=== PATIENT | female | born 2005 | race Caucasian/White ===

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

== ENCOUNTER 2025-04-15 09:49 | Outpatient (CLI) | payer OTHER, SELFPAY ==
--- NOTE | ~2025-04-15 | XR_ITS ---
XR cervical spine 4-5V Ordering provider: Verónica Arrieta MD History: . HUMP IN THORACIC AREA . Comparison: None. FINDINGS: VERTEBRAL BODIES: Normal height and alignment. No visible fracture or subluxation. The dens is intact . DISK SPACES: Well maintained. Normal intervertebral foramina. PARASPINOUS SOFT TISSUES: No prevertebral soft tissue swelling. IMPRESSION: No acute osseous abnormality cervical spine. Reviewed, dictated and finalized at location A.
--- NOTE | ~2025-04-15 | XR_ITS ---
3 VIEWS THORACIC SPINE Ordering provider: Verónica Arrieta MD History: . HUMP IN THORACIC AREA . Comparison: None. FINDINGS: VERTEBRAL BODIES: Normal height and alignment. No visible fracture or subluxation. DISK SPACES: Normal. SOFT TISSUES: Normal. IMPRESSION: No acute osseous abnormality of the thoracic spine. Reviewed, dictated and finalized at location A.
--- OUTSIDE RECORDS SUMMARY | 2025-04-15 10:03 | XMS_ITS | Clinical Summary ---
Author Organization [facility] Address [address] [place] [address] Care Team Providers Care Landcare Officer Name Role Phone Verónica Arrieta MD Primary Care Provider [phone] Source Comments [facility],non-owned Affiliates and Associated Physician Practices is amultiple site organization consisting of ambulatory clinics and hospital sitesin [place], [place], [place] and [place]. This disclosure is being madepursuant to the Care Everywhere program and may not contain all information available regarding this patient. Last updated 18.[facility]to[place] Allergies No known active allergies Medications * Be aware that medications may not be up to date on this document. Alwaysverify current medications with the patient. multivitamin daily (THERAGRAN) tablet Take 1 (one) tablet by mouth daily with food Active mometasone (NASONEX) 50 MCG/ACT nasal spray 2 spray in each nostril QD; (best time is after bath/ shower) 01/11/2019 Active DULoxetine (Cymbalta) 30 MG capsule Take 1 (one) capsule by mouth once daily 02/20/2023 Active hydrOXYzine HCl (Atarax) 10 MG tablet TAKE 1-2 TABLETS BY MOUTH TWICE DAILY NEEDED FOR SEVERE ANXIETY 05/11/2022 Active Loperamide (Imodium) 2 MG tablet Take 1 (one) tablet by mouth once daily as needed for Diarrhea 30 tablet 4 02/28/2023 Active hyoscyamine (Levsin) 0.125 MG IR tablet TAKE 1 TABLET BY MOUTH THREE TIMES A DAY NEEDED FOR SPASMS 270 tablet 2 06/02/2023 Active Active Problems Problem Noted Date Diagnosed Date Irritable bowel syndrome with diarrhea Lower abdominal pain 10/05/2021 Closed left ankle fracture 11/24/2015 Abdominal pain Resolved Problems Problem Noted Date Diagnosed Date Resolved Date Diarrhea 10/05/2021 01/04/2022 Family History Medical History Relation Name Comments Cancer - Colon Maternal Grandfather Multiple Sclerosis Mother Anesthesia Reaction Neg Hx Celiac Disease Neg Hx Crohn's Disease Neg Hx Ulcerative Colitis Neg Hx Relation Name Status Comments Maternal Grandfather Mother Social History Tobacco Use Types Packs/Day Years Used Date Smoking Tobacco: Never Comments No Sex and Gender Information Value Date Recorded Sex Assigned at Not on file Legal Sex Female 2:39 PM CRIMINAL INTELLIGENCE SPECIALIST Gender Identity Not on file Sexual Orientation Not on file Last Filed Vital Signs Vital Sign Reading Time Taken Comments Blood Pressure 118/64 02/28/2023 11:54 AM CDT Pulse 59 04/19/2022 10:15 AM CDT Temperature 36.8 C (98.3 F) 04/19/2022 9:55 AM CDT Respiratory Rate 18 04/19/2022 10:1 5 AM CDT Oxygen Saturation 100% 04/19/2022 10: 15 AM CDT Inhaled Oxygen Concentration - - Weight 71.2 kg (156 lb 15.5 oz) 023 11:54 AM CDT Height 172.3 cm (5' 7.84 ) 02/28/2023 1 1:54 AM CDT Body Mass Index 23.98 02/28/2023 11:54 AM CDT Body Mass Index Percentile 78.50% 02/28 11:54 AM CDT Growth Chart: CDC (Girls, 2- 20 Years) Plan of Treatment Health Maintenance Due Date Last Done Comments HIV SCREENING 2020 HPV VACCINE (1 - 3-dose series) 2020 CHLAMYDIA/GONORRHEA SCREENING 2021 MENINGOCOCCAL (Group B) VACC INE SHARED DECISION-MAKING (1 of 2 - Standard) 2021 HEPATITIS C SCREENING 12/27/2023 COVID-19 VACCINE (1 - 2023-2 5 season) 2024 DEPRESSION SCREENING 11/27/2024 DTAP/TDAP/TD VACCINES (1 - Tdap) 2024 HEPATITIS B VACCINE (1 of 3 - 19+ 3-dose series) 2024 INFLUENZA VACCINE (Season Ended) 2025 08/13/20 ZOSTER VACCINE (1 of 2) 2055 HIB VACCINE Aged Out No longer eligi ble based on patient's age to complete this topic MENINGOCOCCAL GROUPS A/C/Y/W VACCINE Aged Out No longer eligible b ased on patient's age to complete this topic PNEUMOCOCCAL VACCINE Aged Out No long er eligible based on patient's age to complete this topic Insurance [facility] Address: [facility] [id number] [place] [id number] AETNA AETNA AETNA Care Teams Landcare Officer Relationship Specialty Start Date End Date Verónica Arrieta MD [address] [place] [address] PCP - General Pediatrics 11/24/15
--- OUTSIDE RECORDS SUMMARY | 2025-04-15 10:03 | XMS_ITS | Referral Summary ---
Author Organization [facility] Address [address] [place] [id number] Care Team Providers Care Carpet Repairer Name Role Phone Verónica Arrieta MD Primary Care Provider + Allergies No known active allergies Medications DULoxetine DR (CYMBALTA) 60 mg capsule Take 1 capsule (60 mg total) by mouth daily 05/03/[address] (CYMBALTA) 30 mg capsule Take 1 capsule (30 mg total) by mouth daily Active atomoxetine (STRATTERA) 18 mg capsule Take 1 capsule (18 mg total) by mouth daily 05/03/2024 Active Active Problems Problem Noted Date Diagnosed Date Sinus tachycardia 05/22/2024 Resolved Problems Problem Noted Date Diagnosed Date Resolved Date Palpitations 05/22/2024 05/22/2024 Social History Tobacco Use Types Packs/Day Years Used Date Smoking Tobacco: Never Smokeless Tobacco: Never Comments No Sex and Gender Information Value Date Recorded Sex Assigned at Not on file Legal Sex Female 11:47 AM PROPERTY INSPECTOR Gender Identity Not on file Sexual Orientation Not on file Last Filed Vital Signs Vital Sign Reading Time Taken Comments Blood Pressure 114/82 06/05/2024 9:54 AM CDT Pulse 108 06/05/2024 9:54 AM CDT Temperature 37 C (98.6 F) 11/11/2021 9:08 PM PROPERTY INSPECTOR Respiratory Rate 16 11/11/2021 9:08 PM PROPERTY INSPECTOR Oxygen Saturation 98% 06/05/2024 9:54 AM CDT Inhaled Oxygen Concentration - - Weight 92.1 kg (203 lb) 06/05/2024 9:54 AM CDT Height 172.7 cm (5' 8 ) 06/05/2024 9:54 AM CDT Body Mass Index 30.87 06/05/2024 9:54 AM CDT Body Mass Index Percentile 95.15% 06/05/2024 9:5 4 AM CDT Growth Chart: [facility] (Girls, 2- 20 Years) Plan of Treatment Not on file Insurance Care Teams Carpet Repairer Relationship Specialty Start Date End Date Verónica Arrieta MD [address] [place] [address] PCP - General Pediatrics 06/05/24
--- OUTSIDE RECORDS SUMMARY | 2025-04-15 10:03 | XMS_ITS | Clinical Summary ---
Author Organization [facility] Address [address] [place] [id number] Care Team Providers Care Sonogram Technician Name Role Phone Verónica Arrieta MD Primary [...] Diagnosed Date Resolved Date Palpitations 05/22/2024 05/22/2024 Surgical History Surgery Date Site/Laterality Comments TONSILECTOMY, ADENOIDECTOMY, BILATERAL MYRINGOTOMY AND TUBES ADENOIDECTOMY Medical History Medical History Date Comments Depression Adhd Family History Medical History Relation Name Comments Hyperlipidemia Father Hyperlipidemia Mother Hypertension Mother Relation Name Status Comments Father Alive Mother Alive Social History Tobacco Use Types Packs/Day Years Used Date Smoking Tobacco: Never Smokeless Tobacco: Never Comments No Sex and Gender Information Value Date Recorded Sex Assigned at Not on file Legal Sex Female 11:47 AM LAYOUT MAN Gender Identity Not on file Sexual Orientation Not on file Obstetrics History Growth Chart Information Age Height Weight [id number]-fvq-[id number] th Percentile BMI Percentile Head Circum Head Circum Percentile Date 18 years 172.7 cm (5' 8 ) 92.1 kg (203 lb) 95.15%* 2023 18 years 172.7 cm (5' 8 ) 91.2 kg (201 lb) 94.99%* 2023 15 years 78 kg (171 lb 15.3 oz) 2020 * [facility] (Girls, 2-20 Years) Last Filed Vital Signs Vital Sign Reading Time Taken Comments Blood Pressure 114/82 06/05/2024 9:54 AM CDT Pulse 108 06/05/2024 9:54 AM CDT Temperature 37 C (98.6 F) 11/11/2021 9:08 PM LAYOUT MAN Respiratory Rate 16 11/11/2021 9:08 PM LAYOUT MAN Oxygen Saturation 98% 06/05/2024 9:54 AM CDT Inhaled Oxygen Concentration - - Weight 92.1 kg (203 lb) 06/05/2024 9:54 AM CDT Height 172.7 cm (5' 8 ) 06/05/2024 9:54 AM CDT Body Mass Index 30.87 06/05/2024 9:54 AM CDT Body Mass Index Percentile 95.15% 06/05/2024 9:5 4 AM CDT Growth Chart: [facility] (Girls, 2- 20 Years) Plan of Treatment Health Maintenance Due Date Last Done Comments Depression Screening 2005 Hepatitis C Screening 2005 Regular Well Visit/Exam 18-64 2023 Covid-19 Vaccine (2023-2 5 season) 2024 08/13/2022, 05/10/2021, 04/19/2021 Influenza Vaccine (#1) 2024 , 09/16/2021, 10/01/2020, Additional history exists DTaP/Tdap/Td Vaccine (7 - Td or Tdap) 05/17/2026 05/17/2016, 01/28/2011, 07/03/2007, Additional history exists Hepatitis B Screening Completed 10/04/2006 , 01/31/2006, 2005 Pneumococcal vaccine <65 Completed 007, 07/11/2006, 05/02/2006, Additional history exists Varicella Vaccines Completed 01/28/2011, 01/12/2007 HPV Vaccines Completed 10/04/2018, 07/25/2017 Meningococcal Vaccine Completed 08/24/2023, 017 Meningococcal B Vaccine Completed 10/30/2023, 08/24 Insurance [facility] [place] HMO Care Teams Sonogram Technician Relationship Specialty Start Date End Date Verónica Arrieta MD [address] [place] [address] PCP - General Pediatrics 06/05/24
--- OUTSIDE RECORDS SUMMARY | 2025-04-15 10:03 | XMS_ITS | Encounter Summary ---
Author Organization [facility] Address [address] [place] [address] Care Team Providers Care Textile Cutting Machine Operator Name Role Phone Verónica Arrieta MD Primary Care Provider [phone] Reason for Visit * Reason Onset Date Comments Future Appointment 07/22/2022 Encounter Details Date Type Department Care Team (Late st Contact Info) Description 07/22/2022 Telephone [facility] - GI [address] [place] [address] Tracie Waddell, FX ARTIST-HAND TRUCKER [address] [place] [address] Future Appointment Social History Tobacco Use Types Packs/Day Years Used Date Smoking Tobacco: Never Comments No Sex and Gender Information Value Date Recorded Sex Assigned at Not on file Legal Sex Female 2:39 PM SIGN MANUFACTURER Gender Identity Not on file Sexual Orientation Not on file documented as of this encounter Miscellaneous Notes * Telephone Encounter - Alejandra Wilkinson RN - 07/28/2022 11:53 AM CDT Signed [facility] prescriber form faxed back to [facility] at [phone] * Telephone Encounter - Tracie Waddell APRN-CNP - 07/28/2022 11:34 AM CDT [facility] form signed * Telephone Encounter - Alejandra Wilkinson RN - 07/28/2022 8:09 AM CDT Received via fax: sent from [facility] prescriber response form sent for MD to fill out. Will route to [facility]. * Telephone Encounter - Reva Kowalski - 07/22/2022 12:44 PM CDT Admin left mom a message to call and reschedule appointment due to clinic closing in the afternoon and to see if patient could be seen earlier in the day or on another day completely. documented in this encounter Plan of Treatment Not on file documented as of this encounter Visit Diagnoses Not on filedocumented in this encounter Care Teams Textile Cutting Machine Operator Relationship Specialty Start Date End Date Verónica Arrieta MD [address] [address] PCP - General Pediatrics 11/24/15 documented as of this encounter
--- OUTSIDE RECORDS SUMMARY | 2025-04-15 10:03 | XMS_ITS | Clinical Summary ---
Author Organization [facility] Address [address] [place] [address] Phone Care Team Providers Care Warm In Name Role Phone Verónica Arrieta MD Primary Care Provider [phone] Una Workman MD Unavailable [phone] Allergies No known active allergies Medications Vitamins/Minera ls Tablet Take by mouth. 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) 8 Hypertrophy of inferior nasal turbinate 11/29/19 18 DNS (deviated nasal septum) 11/29/2017 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 Resolved Problems Problem Noted Date Diagnosed Date Resolved Date LENIN (obstructive sleep apnea) 01/08/2018 01/11/2019 Recurrent streptococcal tonsillitis 11/29/2017 01/11/2019 Tonsillar and adenoid hypertrophy 11/29/2017 01/11/2019 Snoring 11/29/2017 01/11/2019 Family History Medical History Relation Name Comments No Known Problems Father Diabetes Mother Multiple Sclerosis Mother Relation Name Status Comments Father Alive Mother Alive Social History Tobacco Use Types Packs/Day Years Used Date Smoking Tobacco: Never Smokeless Tobacco: Never Alcohol Use Standard Drinks/Week Comments No 0 (1 standard drink = 0.6 oz pur e alcohol) Comments No Sex and Gender Information Value Date Recorded Sex Assigned at Not on file Legal Sex Female 9:11 AM PRIMARY TEACHER Gender Identity Not on file Sexual Orientation Not on file Occupation Industry Job Start Date Job End Date student Not on file Not on file Not on file Last Filed Vital Signs Vital Sign Reading Time Taken Comments Blood Pressure 126/82 01/11/2019 11:03 AM PRIMARY TEACHER Pulse 90 01/11/2019 11:03 AM PRIMARY TEACHER Temperature 36.3 C (97.3 F) 01/11/2019 11:03 AM PRIMARY TEACHER Respiratory Rate 16 01/11/2019 11:03 AM PRIMARY TEACHER Oxygen Saturation 98% 01/11/2019 11:03 AM PRIMARY TEACHER Inhaled Oxygen Concentration - - Weight 71.2 kg (157 lb) 01/11/2019 11:03 AM PRIMARY TEACHER Height 171.5 cm (5' 7.5 ) 01/11/2019 11:03 AM CS T Body Mass Index 24.23 01/11/2019 11:03 AM PRIMARY TEACHER Body Mass Index Percentile 91.03% 01/11/2019 11: 03 AM PRIMARY TEACHER Growth Chart: [facility] (Girls, 2- 20 Years) Plan of Treatment Health Maintenance Due Date Last Done Comments Hepatitis C Virus (HCV) Screening 2005 Human Papillomavirus (HPV) Immunization (2 - 2-dose series) 01/24/2018 07/25/2017 Meningococcal B Immunization (1 of 2 - Standard) 2021 Influenza Immunization (#1) 2024 07/25/2017 SARS-COV-2 Immunization (3 - season) 2024 05/10/2021, 04/19/2021 Respiratory Syncytial Virus (RSV) Immunization (Adult) (1 - 1-dose 75+ series) 2080 Hepatitis B Immunization Completed 006, 01/31/2006, 2005 Pneumococcal Immunization Combined Aged Out 07/03/2007, 07/11/2006, 05/02/2006, Additional history exists No longer eligible based on patient's age to complete this topic Hepatitis A Immunization Discontinued 04/29/2008, 05/2007 Measles Mumps Rubella (MMR) Immunization Discontinued 01/28/2011, 01/12/2007 Varicella Immunization Discontinued 01/28/2011, 2006 DTaP/Tdap/Td Immunization Discontinued 2015, 01/28/2011, 07/03/2007, Additional history exists TdaP Immunization Completed 05/17/2016 Meningococcal Immunization (ACWY) Aged Out 07/25/2017 No longer eligible based on patient's age to complete this topic Rotavirus Immunization Aged Out No lo nger eligible based on patient's age to complete this topic Care Teams Warm In Relationship Specialty Start Date End Date Verónica Arrieta MD [address] [facility] [address] [place] [address] PCP - General Pediatrics 11/29/17 Una Workman MD [address] [place] [id number] Pattern Clerk Pediatrics 01/11/19
== END 2025-04-15 09:50 | disposition home or self-care (01) ==
PROVIDERS: PCP Pediatrics; Visit Provider Pediatrics
DX: M40.04 Postural kyphosis, thoracic region (principal)
CPT/HCPCS: 72050; 72072